=== PATIENT | female | born 1960 | race Caucasian/White ===

== ENCOUNTER → 2016-11-09 | Outpatient (CLI) | payer OTHER | LOC: SPEECH 11:08 → RAD 11:08 | DX: R13.12 Dysphagia, oropharyngeal phase (principal); R06.89 Other abnormalities of breathing; K21.9 Gastro-esophageal reflux disease without esophagitis; R09.89 Other specified symptoms and signs involving the circulatory and respiratory systems; R49.0 Dysphonia; J02.9 Acute pharyngitis, unspecified ==